=== PATIENT | female | born 1960 | race Caucasian/White ===

== ENCOUNTER → 2018-05-20 | Outpatient (CLI) | payer OTHER ==
--- NOTE | 2018-05-20 14:25 | PCVCIMAG ---
EXAM: ULTRASOUND OF THE THYROID INDICATION: Hypothyroidism. FINDINGS: The right thyroid lobe measures 0.6 x 0.6 x 2.7 cm. The left thyroid lobe measures 0.8 x 0.9 x 2.5 cm. No masses or nodules in either thyroid lobe. Irregular echotexture throughout the thyroid gland. IMPRESSION: The thyroid gland is decreased in size without evidence of focal nodules. LOC:[id number]
== END | disposition home or self-care (01) ==
LOC: PCVCIMAG 13:07
PROVIDERS: ATTEND Internal Medicine Cardiovascular Disease
DX: E03.9 Hypothyroidism, unspecified (principal)
CPT/HCPCS: 76536